=== PATIENT | male | born 1970 | race Two or more races ===

== ENCOUNTER 2017-07-01 18:31 | Inpatient (IN) | payer BC ==
[~2017-07-01] VITALS: Ht 180.3 cm; Wt 77.1 kg
--- NOTE | 2017-07-01 18:40 | NUR ---
BBRA 79 FROM HOME FOR WITNESSED SEIZURE ~2MIN PER NO TRAUMA NOTED. SZ ONCE IN PAST. DENIES TAKING SZ MEDS, NAD NOTED, VSS, RESP EVEN AND UNLABORED, PT WAS PUT ON MONITOR, SEIZURE PRECAUTION IMPLEMENTED. WAITING FOR MD LUX
[2017-07-01] MEDS ORDERED: LEVETIRACETAM (500MG) 500 MG in IV NS 0.9% 100 ML IV SCH ×2 (19:00→22:38)
[2017-07-01 19:12] LABS: BASOPHILS % (AUTO) 0.3 % (0.0-2.0); EOSINOPHILS # (AUTO) 0.1 /CMM (0.0-0.7); EOSINOPHILS % (AUTO) 0.9 % (0.0-6.0); HEMATOCRIT 41 % (39-51); HEMOGLOBIN 14.2 g/dL (13.5-17.5); LYMPHOCYTES # (AUTO) 0.7 /CMM (0.8-4.8); LYMPHOCYTES % (AUTO) 8.8 % (20.0-44.0); MEAN CORPUSCULAR HEMOGLOBIN 30 PG (26.0-33.0); MEAN CORPUSCULAR HGB CONC 34 g/dl (31.0-36.0); MEAN CORPUSCULAR VOLUME 86 fL (80-96); MONOCYTES # (AUTO) 0.4 /CMM (0.1-1.30); MONOCYTES % (AUTO) 4.8 % (2.0-12.0); NEUTROPHILS # (AUTO) 6.5 /CMM (1.8-8.9); NEUTROPHILS % (AUTO) 85.2 % (43.0-81.0); PLATELET COUNT (AUTO) 291 /CMM (150-450); RDW COEFFICIENT OF VARIATION 13.4 (11.5-15.0); WHITE BLOOD COUNT (AUTO) 7.7 K/uL (4.3-11.0)
--- NOTE | 2017-07-01 19:22 | NUR ---
PT UNABLE TO URINATE AT THIS MOMENT.
[2017-07-01 19:27] LABS: INR 0.97 (0.85-1.15)
[2017-07-01 19:29] LABS: CALCIUM, SERUM 9.2 mg/dL (8.5-10.1); CARBON DIOXIDE 25 mmol/L (21-32); CHLORIDE 103 mmol/L (98-107); CREATININE 1.3 mg/dL (0.6-1.3); GLUCOSE 101 mg/dL (74-106); POTASSIUM 4.8 mmol/L (3.5-5.1); SODIUM SERUM 138 mmol/L (136-145); UREA NITROGEN, BLOOD 14 mg/dL (7-18)
[2017-07-01 19:34] LABS: ALANINE AMINOTRANSFERASE 20 U/L (12-78); ALCOHOL, BLOOD < 3 mg/dL (0-0); ALKALINE PHOSPHATASE 45 U/L (46-116); ASPARTATE AMINOTRANSFERASE 14 U/L (15-37); BILIRUBIN,DIRECT 0.2 mg/dL (0.0-0.2)
--- NOTE | 2017-07-01 20:30 | NUR ---
URINE SENT TO LAB
--- NOTE | 2017-07-01 21:08 | NUR ---
PANEL PAGED PER ER MD ORDER.
[2017-07-01 22:00] VITALS: BP 116/78
--- NOTE | 2017-07-01 22:00 | NUR ---
PRODUCTION LINE TECHNICIAN ADMITTING NOTES RECEIVED PATIENT FROM ER & ADMITTED TO ROOM 103. PATIENT A/A/O X3, ABLE TO MAKE NEEDS KNOWN. BREATHING EVEN & UNLABORED, TOLERATING ROOM AIR. ON TELE W/ SINUS RHYTHM, HR IN 80S. DENIES ANY CHEST PAIN OR DISCOMFORT. SKIN WARM, DRY & INTACT. NO ISSUES IDENTIFIED. RIGHT AC IV #20 INTACT & FLUSHING WELL W/ DRESSING CDI, SALINE LOCKED @ THIS TIME. PATIENT ABLE TO AMBULATE W/ ASSIST FROM GURNEY TO BED. DENIES ANY PAIN OR DISCOMFORT @ THIS TIME. AWAITING ADMITTING ORDERS. SAFETY MEASURES IN PLACE & ADVISED TO CALL FOR ASSISTANCE. SEIZURE PRECAUTIONS IN PLACE W/ PADDED SIDE RAILS. WILL CONTINUE TO MONITOR CLOSELY.
[2017-07-01] MEDS ORDERED: LISD30CA2 PO (22:24)
[2017-07-01] MEDS ORDERED: PROP80CA PO (22:24)
[2017-07-01] MEDS ORDERED: [UNRECOGNIZED DRUG - CODE] PO (22:24)
[2017-07-01] MEDS ORDERED: LITH300T3 PO (22:24)
[2017-07-01] MEDS ORDERED: GABA-534 PO (22:24)
[2017-07-01] MEDS ORDERED: ALPR0.5T PO (22:24)
[2017-07-01] MEDS ORDERED: LEVO1CAP2 PO (22:24)
[2017-07-01] MEDS ORDERED: BUPR-51 PO (22:24)
[2017-07-01 22:39] VITALS: BP 116/78
[2017-07-01] MEDS ORDERED: LORAZEPAM INJ 2 MG/ML VIAL IV PRN (23:00)
[2017-07-01] MEDS ORDERED: ONDANSETRON HCL/PF 4 MG/2 ML VIAL IVP PRN (23:00)
[2017-07-01] MEDS ORDERED: ALPRAZOLAM 0.5 MG TABLET PO SCH (23:00)
[2017-07-01] MEDS ORDERED: ZOLPIDEM TARTRATE 5 MG TABLET PO PRN (23:00)
[2017-07-01] MEDS ORDERED: MAG HYDROX/AL HYDROX/SIMETH 30 ML UDC PO PRN (23:00)
[2017-07-01] MEDS ORDERED: HYDROCODONE/APAP 5/325MG 1 EACH TABLET PO PRN (23:00)
[2017-07-01] MEDS ORDERED: ACETAMINOPHEN 325 MG TABLET PO PRN (23:00)
[2017-07-01] MEDS ORDERED: MAGNESIUM HYDROXIDE 30 ML UDC PO PRN (23:00)
[2017-07-01] MEDS ORDERED: Z GUARD REMEDY 2 OZ OINT TP PRN (23:00)
[2017-07-01] MEDS: ENOXAPARIN SODIUM 40 MG/0.4 ML DISP.SYRIN SQ SCH (23:43)
[2017-07-02] VITALS: BP 114/78
[2017-07-02] MEDS: IV NS 0.9% 1,000 ML IV PRN ×2 (00:22→16:15)
[2017-07-02 04:00] VITALS: BP 111/78
[2017-07-02 06:36] LABS: BASOPHILS % (AUTO) 0.2 % (0.0-2.0); EOSINOPHILS # (AUTO) 0.1 /CMM (0.0-0.7); EOSINOPHILS % (AUTO) 0.8 % (0.0-6.0); HEMATOCRIT 37 % (39-51); HEMOGLOBIN 12.6 g/dL (13.5-17.5); LYMPHOCYTES # (AUTO) 0.9 /CMM (0.8-4.8); LYMPHOCYTES % (AUTO) 13.6 % (20.0-44.0); MEAN CORPUSCULAR HEMOGLOBIN 30 PG (26.0-33.0); MEAN CORPUSCULAR HGB CONC 34 g/dl (31.0-36.0); MEAN CORPUSCULAR VOLUME 88 fL (80-96); MONOCYTES # (AUTO) 0.5 /CMM (0.1-1.30); MONOCYTES % (AUTO) 6.7 % (2.0-12.0); NEUTROPHILS # (AUTO) 5.4 /CMM (1.8-8.9); NEUTROPHILS % (AUTO) 78.7 % (43.0-81.0); PLATELET COUNT (AUTO) 261 /CMM (150-450); RDW COEFFICIENT OF VARIATION 14.7 (11.5-15.0); RED BLOOD CELL COUNT(AUTO) 4.24 MIL/uL (4.5-6.0); WHITE BLOOD COUNT (AUTO) 6.9 K/uL (4.3-11.0)
[2017-07-02 06:41] LABS: CALCIUM, SERUM 8.1 mg/dL (8.5-10.1); CREATININE 1.1 mg/dL (0.6-1.3); MAGNESIUM 2.3 mg/dL (1.8-2.4); PHOSPHORUS 3.9 mg/dL (2.5-4.9); POTASSIUM 3.6 mmol/L (3.5-5.1)
--- NOTE | 2017-07-02 07:15 | NUR ---
RN OPENING/TELE NOTES RECEIVED PT. IN BED A&OX4. BREATHING UNLABORED, AND EVENLY ON ROOM AIR. NO S/S OF ACUTE DISTRESS. IV FLUIDS RUNNING AT 75 ML/HR. 2 SIDE RAILS ARE BOTH PADDED TO KEEP PT. SAFE. PT. IS ON SEIZURE PRECAUTIONS. 2 SIDE RAILS UP, AND INSTRUCTED PT. TO USE CALL LIGHT FOR ASSISTANCE. ALL NEEDS MET. WILL CONTINUE TO ASSESS AND MONITOR.
[2017-07-02 08:00] VITALS: BP 116/74
--- NOTE | 2017-07-02 08:55 | NUR ---
RN NOTES PT. WAS SEEN AND EXAMINED BY DR. ROSS NEUROLOGIST. NO NEW ORDERS GIVEN.
[2017-07-02] MEDS ORDERED: PROPRANOLOL LA 60 MG CAP.SA.24H PO SCH (09:00)
[2017-07-02] MEDS ORDERED: PROPRANOLOL HCL 10 MG TABLET PO PRN (09:00)
[2017-07-02] MEDS ORDERED: LISDEXAMFETAMINE 30 MG PO SCH (09:00)
--- NOTE | 2017-07-02 09:00 | NUR ---
RN NOTES MRSA SWAB COLLECTED FROM BOTH NARES, AND LAB WAS NOTIFIED CULTURE IS READY.
[2017-07-02] MEDS: BUPROPION XL 150 MG TAB.ER.24 PO SCH (09:03)
[2017-07-02] MEDS: VITAMIN B COMP W-C 1 TAB TABLET PO SCH (09:03)
[2017-07-02] MEDS: LITHIUM CARBONATE (300 MG CAP) 300 MG CAPSULE PO SCH ×3 (09:03→17:00)
[2017-07-02] MEDS: GABAPENTIN 300 MG CAPSULE PO SCH (09:03)
[2017-07-02] MEDS ORDERED: LEVETIRACETAM (500MG) 500 MG in IV NS 0.9% 100 ML IV SCH (11:00)
[2017-07-02 12:00] VITALS: BP 109/69
[2017-07-02] MEDS: OXCARBAZEPINE 150 MG TABLET PO SCH ×2 (13:55→17:17)
[2017-07-02 16:00] VITALS: BP 101/54
--- NOTE | 2017-07-02 18:29 | NUR ---
RN OPENING/TELE NOTES PT. IN BED A&OX4. BREATHING UNLABORED, AND EVENLY ON ROOM AIR. NO S/S OF ACUTE DISTRESS. IV FLUIDS RUNNING AT 75 ML/HR. 2 SIDE RAILS ARE BOTH PADDED TO KEEP PT.'S ENVIRONMENT SAFE. PT. IS ON SEIZURE PRECAUTIONS. 2 SIDE RAILS UP, AND INSTRUCTED PT. TO USE CALL LIGHT FOR ASSISTANCE. ALL NEEDS MET. WILL ENDORSE REPORT TO NURSE. Addendum: 07/02/17 at 1830 by HAMLET GUERRERO RN CLOSING/TELEMETRY NOTES ABOVE
--- NOTE | 2017-07-02 19:30 | NUR ---
INSTRUCTOR KNITTING OPENING NOTES RECEIVED REPORT FROM HAMLET SPRAGUE. PATIENT A/A/O X3, ABLE TO MAKE NEEDS KNOWN. BREATHING EVEN & UNLABORED, TOLERATING ROOM AIR. ON TELE W/ SINUS RHYTHM, HR IN 90S. DENIES ANY CHEST PAIN OR DISCOMFORT. RIGHT AC IV #20 INTACT & PATENT W/ DRESSING CDI & IVF NS @ 75 ML/HR. DENIES ANY PAIN OR DISCOMFORT @ THIS TIME. DENIES ANY DIZZINESS OR LIGHTHEADEDNESS. SAFETY MEASURES IN PLACE & ADVISED TO CALL FOR ASSISTANCE. SEIZURE PRECAUTIONS IN PLACE W/ PADDED SIDE RAILS. WILL CONTINUE TO MONITOR CLOSELY.
[2017-07-02 20:00] VITALS: BP 116/65
[2017-07-02] MEDS ORDERED: IMIPRAMINE 25 MG TABLET PO SCH (22:00)
[2017-07-02] MEDS: ENOXAPARIN SODIUM 40 MG/0.4 ML DISP.SYRIN SQ SCH (22:20)
[2017-07-03] VITALS: BP 118/71
[2017-07-03 04:00] VITALS: BP 113/71
--- NOTE | 2017-07-03 07:05 | NUR ---
COMMERCIAL FISHING VESSEL OPERATOR OPENING NOTES PT RECEIVED A&0X3. PT TELE:SR. PT TOLERATING ROOM AIR WITHOUT S/S OF RESP DISTRESS, PT DENIES PAIN. PT WITH IVC AT R AC INTACT AND OPERATIONAL WITH NS 75ML/HR. PT WITH URINAL AT BEDSIDE WITH LITE YELLOW URINE IN COLLECTION. BED IN LOWEST LOCKED POSITION WITH PADDED [id number] AND CALL CHEN WITHIN REACH. PT BRIEFED ON TODAY'S POC AND IS WITHOUT CONCERN OR COMPLAINT AT THIS TIME.
[2017-07-03 08:00] VITALS: BP 106/63
[2017-07-03] MEDS: GABAPENTIN 300 MG CAPSULE PO SCH (08:36)
[2017-07-03] MEDS: LITHIUM CARBONATE (300 MG CAP) 300 MG CAPSULE PO SCH ×3 (08:36→16:13)
[2017-07-03] MEDS: VITAMIN B COMP W-C 1 TAB TABLET PO SCH (08:37)
[2017-07-03] MEDS: BUPROPION XL 150 MG TAB.ER.24 PO SCH (08:37)
[2017-07-03] MEDS: IV NS 0.9% 1,000 ML IV PRN (08:39)
[2017-07-03] MEDS: OXCARBAZEPINE 150 MG TABLET PO SCH ×2 (08:44→16:13)
[2017-07-03 12:00] VITALS: BP 111/62
[2017-07-03] MEDS ORDERED: OXCA300T4 PO (13:30)
[2017-07-03 16:00] VITALS: BP 100/70
--- NOTE | 2017-07-03 16:22 | NUR ---
LITIGATION MANAGER D/C NOTES. PT PREPARED FOR D/C PER MD. PT A&0X3. PT TOLERATING ROOM AIR AND DENIES PAIN. PT IVC REMOVED AND NAD AT SITE. PT WITH ALL BELONGINGS AND DOCUMENT SIGNED. PT AND PT BRIEFED ON SO D/C REPORT, NEW MEDICATIONS PLUS SCRIPT AND IS VERBALIZING THE UNDERSTANDING, RESOURCES AND INTENT TO FOLLOW POC. ALL DAY NURSE DUTIES ATTENDED TO AND PT AND PT ARE WITHOUT CONCERN OR COMPLAINT. PT AMBULATORY, ESCORTED TO DOOR.
== END 2017-07-03 16:45 | disposition home or self-care (01) | DRG 101 ==
LOC: ER 18:34 → TELE1 21:25
PROVIDERS: ADMIT Nurse Practitioner Acute Care; ATTEND Nurse Practitioner Acute Care
DX: G40.909 Epilepsy, unspecified, not intractable, without status epilepticus (principal); F32.9 Major depressive disorder, single episode, unspecified; F41.9 Anxiety disorder, unspecified; M10.9 Gout, unspecified; Z98.1 Arthrodesis status
CPT/HCPCS: 36415; 70450-TC; 71045-TC; 80048-TC; 80061-TC; 80076-TC; 80305; 83735-TC; 84100-TC; 85025-TC; 85730-TC; 87081-TC; A4606; G0480; J1650; J1953; J7030; Z7610